=== PATIENT | female | born 1950 | race Caucasian/White ===

== ENCOUNTER 2020-03-22 06:10 | Inpatient (IN) ==
[2020-03-22] MEDS ORDERED: Clindamycin 900 MG/50 ML 900 MG/50 ML IV.SOLN IVPB ONE (06:40)
[2020-03-22] MEDS ORDERED: Ringers Solution, Lactated 1,000 ML IVC SCH ×2 (06:45→15:06)
[2020-03-22] MEDS ORDERED: Acetaminophen IV 1,000 MG/100 ML INFUS..BTL IVPB ONE (07:00)
[2020-03-22] MEDS ORDERED: Ondansetron 4 MG/2 ML VIAL IVP PRN ×2 (07:15→15:06)
[2020-03-22] MEDS ORDERED: Promethazine 6.25 MG in Water for inj. (sterile) 20 ML IVPB PRN (07:15)
[2020-03-22] MEDS ORDERED: *HR* Meperidine 25 MG/ML SYRINGE IVP PRN (07:15)
[2020-03-22] MEDS ORDERED: Ondansetron 4 MG/2 ML VIAL ONE (07:21)
[2020-03-22] MEDS ORDERED: *HR* Succinylcholine 200 MG/10 ML VIAL IVP ONE (07:21)
[2020-03-22] MEDS ORDERED: Lidocaine -MPF 2% 2 ML VIAL ONE (07:21)
[2020-03-22] MEDS ORDERED: Dexamethasone 4 MG/ML VIAL ONE (07:21)
[2020-03-22] MEDS ORDERED: *HR* Rocuronium Bromide 50 MG/5 ML VIAL ONE (07:21)
[2020-03-22] MEDS ORDERED: Lidocaine HCL 4 ML Topical Solution (Laryng-O-Jet Kit Sterile Pak) TP ONE (07:21)
[2020-03-22] MEDS ORDERED: *HR* Propofol 200 MG/20 ML VIAL IVP ONE ×2 (07:22→11:31)
[2020-03-22] MEDS ORDERED: *HR* FentaNYL (PF) 100 MCG/2 ML VIAL ONE (07:22)
[2020-03-22] MEDS ORDERED: Povidone-Iodine 28.4 GM TUBE TP ONE (07:35)
[2020-03-22] MEDS ORDERED: Heparin 1,000 UNITS/500 mL 500 ML ONE (07:40)
[2020-03-22] MEDS ORDERED: Bacitracin 50,000 UNIT, Polymyxin B Sulfate 500,000 UNIT, Sodium Chloride IRRigation 1,... IR ONE (07:45)
[2020-03-22] MEDS ORDERED: *HR* PHENYLEPHRINE 1,000 MCG/10 ML SYRINGE IVP ONE ×4 (08:06→10:08)
[2020-03-22] MEDS ORDERED: *HR* Remifentanil 1 MG VIAL IVP ONE ×2 (08:53→08:54)
[2020-03-22] MEDS ORDERED: EPHEDrine 50 MG/ML VIAL ONE (09:48)
[2020-03-22] MEDS ORDERED: Lidocaine -MPF 4% 5 ML AMPUL ONE (10:39)
[2020-03-22] MEDS ORDERED: *HR* Phenylephrine 10 MG/ML VIAL ONE (10:57)
[2020-03-22] MEDS ORDERED: *HR* HYDROMORPHONE 2 MG/ML VIAL ONE (12:23)
[2020-03-22] MEDS: *HR* HYDROmorphone PF 0.5 MG/0.5 ML SYRINGE IVP PRN ×4 (12:45→13:12)
[2020-03-22] MEDS ORDERED: Naloxone 0.4 MG/ML INJ IVP PRN (15:06)
[2020-03-22] MEDS ORDERED: Acetaminophen 325 MG TABLET PO PRN (15:06)
[2020-03-22] MEDS ORDERED: *HR* Metoprolol 5 MG/5 ML VIAL IVP ONE (16:22)
[2020-03-22] MEDS: Clindamycin 900 MG/50 ML 900 MG/50 ML IV.SOLN IVPB SCH (16:47)
[2020-03-22 16:48] LABS: Troponin I < 0.03 ng/mL (< 0.04)
[2020-03-22] MEDS ORDERED: 0.9 % Sodium Chloride 500 ML IVC ONE (16:56)
[2020-03-22 17:04] LABS: Hematocrit 42.1 % (35.3-44.9); Hemoglobin 13.4 g/dL (11.5-15.4); Mean Corpuscular HGB Conc 31.8 g/dL (31.6-35.5); Mean Corpuscular Hemoglobin 31.8 pg (28.0-33.3); Mean Platelet Volume 10.8 fL (9.4-12.4); Platelet Count 263 K/mcL (140-400); Red Blood Count 4.21 M/mcL (3.82-4.97); Red Cell Distribution Width 12.2 % (11.5-14.5); White Blood Count 11.1 K/mcL (4.3-11.1)
[2020-03-22 17:11] LABS: BUN/Creatinine Ratio 18 (6-26); Blood Urea Nitrogen 14 mg/dL (8-23); Calcium 9.1 mg/dL (8.6-10.3); Carbon Dioxide 23 mEq/L (23-29); Chloride 104 mEq/L (98-107); Glucose 168 mg/dL (70-105); Magnesium 1.7 mg/dL (1.6-2.6); Osmolality,Calculated 286 (280-300); Potassium 4.3 mEq/L (3.5-5.1); Sodium 136 mEq/L (136-145); eGFR For African Americans > 60 (> 60); eGFR For Non-African Americans > 60 (> 60)
[2020-03-22] MEDS: *HR* OxyCODONE Immed Rel 5 MG TABLET PO PRN (21:38)
[2020-03-23] MEDS: Clindamycin 900 MG/50 ML 900 MG/50 ML IV.SOLN IVPB SCH (00:04)
[2020-03-23] MEDS: *HR* OxyCODONE Immed Rel 5 MG TABLET PO PRN ×4 (03:11→18:22)
[2020-03-23] MEDS ORDERED: GI Cocktail 40 ML EACH PO ONE (03:26)
[2020-03-23 06:12] LABS: Thyroid Stimulating Hormone 0.419 mcIU/mL (0.340-5.600)
[2020-03-23 12:22] LABS: INR 1.1; Prothrombin Time 13.1 Seconds (9.4-12.1)
[2020-03-23] MEDS ORDERED: *HR* Warfarin 4 MG TABLET PO ONE (18:00)
[2020-03-23] MEDS ORDERED: Warfarin perPT PO PRN (18:00)
[2020-03-24] MEDS: *HR* HYDROcodone/Acet 5/325 mg TABLET PO PRN (00:28)
[2020-03-24] MEDS: *HR* OxyCODONE Immed Rel 5 MG TABLET PO PRN ×4 (07:50→21:17)
[2020-03-24] MEDS: DilTIAZem CD (24hr) 180 MG CAP.ER.24H PO SCH (07:51)
[2020-03-24] MEDS: amLODIPine 5 MG TABLET PO SCH (07:51)
[2020-03-24] MEDS ORDERED: tiZANidine 4 MG TABLET PO PRN (08:36)
[2020-03-24] MEDS ORDERED: DilTIAZem CD (24hr) 120 MG CAP.ER.24H PO SCH (09:00)
[2020-03-24] MEDS ORDERED: diazePAM 5 MG TABLET PO PRN (17:52)
[2020-03-24 17:55] LABS: INR 1.2; Prothrombin Time 14.2 Seconds (9.4-12.1)
[2020-03-24] MEDS ORDERED: *HR* Warfarin 4 MG TABLET PO ONE (18:00)
[2020-03-25] MEDS: *HR* OxyCODONE Immed Rel 5 MG TABLET PO PRN ×4 (04:52→19:56)
[2020-03-25 05:21] LABS: INR 1.4; Prothrombin Time 15.9 Seconds (9.4-12.1)
[2020-03-25] MEDS: amLODIPine 5 MG TABLET PO SCH (08:59)
[2020-03-25] MEDS: DilTIAZem CD (24hr) 180 MG CAP.ER.24H PO SCH (08:59)
[2020-03-25 15:14] LABS: Basophils % 0.5 %; Eosinophils % 0.2 %; Hematocrit 44.7 % (35.3-44.9); Hemoglobin 14.5 g/dL (11.5-15.4); Immature Granulocytes % 0.5 % (0-4); Lymphocytes # 0.7 K/mcL (0.6-4.6); Mean Corpuscular HGB Conc 32.4 g/dL (31.6-35.5); Mean Corpuscular Hemoglobin 31.1 pg (28.0-33.3); Mean Corpuscular Volume 95.9 fL (83.0-100.0); Mean Platelet Volume 10.7 fL (9.4-12.4); Monocytes # 0.8 K/mcL (0.0-1.3); Monocytes % 8.5 %; Neutrophils # 7.3 K/mcL (1.6-8.9); Platelet Count 274 K/mcL (140-400); Red Blood Count 4.66 M/mcL (3.82-4.97); Red Cell Distribution Width 12.2 % (11.5-14.5); Segmented Neutrophils % 82.3 %; White Blood Count 8.9 K/mcL (4.3-11.1)
[2020-03-25 15:29] LABS: BUN/Creatinine Ratio 17 (6-26); Blood Urea Nitrogen 10 mg/dL (8-23); Calcium 9.3 mg/dL (8.6-10.3); Carbon Dioxide 27 mEq/L (23-29); Chloride 97 mEq/L (98-107); Glucose 120 mg/dL (70-105); Osmolality,Calculated 276 (280-300); Potassium 3.3 mEq/L (3.5-5.1); Sodium 133 mEq/L (136-145); eGFR For African Americans > 60 (> 60); eGFR For Non-African Americans > 60 (> 60)
[2020-03-25] MEDS ORDERED: *HR* Warfarin 2 MG TABLET PO ONE (18:00)
[2020-03-25] MEDS ORDERED: *HR* Metoprolol 5 MG/5 ML VIAL IVP ONE (21:57)
[2020-03-26] MEDS: *HR* OxyCODONE Immed Rel 5 MG TABLET PO PRN ×3 (05:19→17:15)
[2020-03-26 06:33] LABS: Basophils # 0.1 K/mcL (0.0-0.2); Basophils % 0.5 %; Eosinophils % 0.2 %; Hematocrit 44.6 % (35.3-44.9); Hemoglobin 14.8 g/dL (11.5-15.4); Immature Granulocytes % 0.5 % (0-4); Lymphocytes # 0.7 K/mcL (0.6-4.6); Lymphocytes % 6.3 %; Mean Corpuscular HGB Conc 33.2 g/dL (31.6-35.5); Mean Corpuscular Volume 96.3 fL (83.0-100.0); Mean Platelet Volume 10.4 fL (9.4-12.4); Monocytes # 0.9 K/mcL (0.0-1.3); Monocytes % 7.7 %; Neutrophils # 9.6 K/mcL (1.6-8.9); Platelet Count 285 K/mcL (140-400); Red Blood Count 4.63 M/mcL (3.82-4.97); Red Cell Distribution Width 12.2 % (11.5-14.5); Segmented Neutrophils % 84.8 %; White Blood Count 11.3 K/mcL (4.3-11.1)
[2020-03-26 06:44] LABS: INR 1.5; Prothrombin Time 17.6 Seconds (9.4-12.1)
[2020-03-26 06:54] LABS: BUN/Creatinine Ratio 20 (6-26); Blood Urea Nitrogen 11 mg/dL (8-23); Calcium 9.4 mg/dL (8.6-10.3); Carbon Dioxide 24 mEq/L (23-29); Chloride 98 mEq/L (98-107); Glucose 114 mg/dL (70-105); Magnesium 1.8 mg/dL (1.6-2.6); Osmolality,Calculated 274 (280-300); Potassium 3.3 mEq/L (3.5-5.1); Sodium 132 mEq/L (136-145); eGFR For African Americans > 60 (> 60); eGFR For Non-African Americans > 60 (> 60)
[2020-03-26] MEDS ORDERED: DilTIAZem CD (24hr) 240 MG CAP.ER.24H PO SCH (09:00)
[2020-03-26] MEDS: amLODIPine 5 MG TABLET PO SCH (09:51)
[2020-03-26] MEDS: DilTIAZem 50 MG/50 ML IV.SOLN IVC SCH ×2 (10:00→16:04)
[2020-03-26] MEDS ORDERED: *HR* Warfarin 4 MG TABLET PO ONE (18:00)
[2020-03-26] MEDS ORDERED: Isovue-370 500 ML BOTTLE IVP ONE (18:04)
[2020-03-26] MEDS ORDERED: Magnesium Sulfate 1 GM/102 ML PIGGYBACK IVPB ONE (18:06)
[2020-03-26] MEDS ORDERED: *HR* Heparin 5,000 UNIT/ML VIAL IVP PRN ×2 (20:50)
[2020-03-26] MEDS ORDERED: *HR* Heparin 5,000 UNIT/ML VIAL IVP ONE (20:50)
[2020-03-26] MEDS ORDERED: Perflutren Lipid Microsphere 1.3 ML in 0.9 % Sodium Chloride 8.7 ML IVP PRN (21:06)
[2020-03-26 22:18] LABS: Hematocrit 42.1 % (35.3-44.9); Hemoglobin 13.8 g/dL (11.5-15.4); Mean Corpuscular HGB Conc 32.8 g/dL (31.6-35.5); Mean Corpuscular Hemoglobin 31.2 pg (28.0-33.3); Mean Platelet Volume 10.4 fL (9.4-12.4); Platelet Count 301 K/mcL (140-400); Red Blood Count 4.43 M/mcL (3.82-4.97); Red Cell Distribution Width 12.2 % (11.5-14.5); White Blood Count 11.7 K/mcL (4.3-11.1)
[2020-03-26 22:19] LABS: Heparin anti-factor XA UFH < 0.04 IU/mL (0.30-0.70)
[2020-03-26 22:20] LABS: INR 1.6; Prothrombin Time 17.7 Seconds (9.4-12.1)
[2020-03-26] MEDS: Heparin 25,000UNIT/250ML 1/2NS 25,000 UNIT/250 ML IV.SOLN IVC SCH (22:39)
[2020-03-27] MEDS: *HR* OxyCODONE Immed Rel 5 MG TABLET PO PRN ×4 (01:31→21:48)
[2020-03-27] MEDS: DilTIAZem 50 MG/50 ML IV.SOLN IVC SCH (02:27)
[2020-03-27 06:13] LABS: INR 1.8
[2020-03-27] MEDS: *HR* HYDROcodone/Acet 5/325 mg TABLET PO PRN (12:28)
[2020-03-27] MEDS ORDERED: *HR* Warfarin 4 MG TABLET PO ONE (18:00)
[2020-03-27] MEDS: Heparin 25,000UNIT/250ML 1/2NS 25,000 UNIT/250 ML IV.SOLN IVC SCH (22:31)
[2020-03-28 04:32] LABS: INR 1.9
[2020-03-28] MEDS: *HR* OxyCODONE Immed Rel 5 MG TABLET PO PRN ×3 (05:07→18:18)
[2020-03-28] MEDS: *HR* HYDROcodone/Acet 5/325 mg TABLET PO PRN (07:36)
[2020-03-28] MEDS ORDERED: *HR* Warfarin 4 MG TABLET PO ONE (18:00)
[2020-03-28] MEDS: Heparin 25,000UNIT/250ML 1/2NS 25,000 UNIT/250 ML IV.SOLN IVC SCH (23:45)
[2020-03-29 01:29] LABS: INR 2.1
[2020-03-29] MEDS: *HR* OxyCODONE Immed Rel 5 MG TABLET PO PRN ×2 (09:56→20:47)
[2020-03-29] MEDS: DilTIAZem CD (24hr) 180 MG CAP.ER.24H PO SCH (10:45)
[2020-03-29] MEDS ORDERED: *HR* Warfarin 2 MG TABLET PO ONE (18:00)
[2020-03-30 02:16] LABS: INR 1.9; Prothrombin Time 22.1 Seconds (9.4-12.1)
[2020-03-30] MEDS: Heparin 25,000UNIT/250ML 1/2NS 25,000 UNIT/250 ML IV.SOLN IVC SCH (07:30)
[2020-03-30] MEDS: DilTIAZem CD (24hr) 180 MG CAP.ER.24H PO SCH (09:17)
[2020-03-30] MEDS: *HR* OxyCODONE Immed Rel 5 MG TABLET PO PRN (09:23)
[2020-03-30 09:57] LABS: Basophils # 0.1 K/mcL (0.0-0.2); Basophils % 0.9 %; Eosinophils # 0.1 K/mcL (0.0-0.6); Eosinophils % 1.4 %; Hematocrit 44.3 % (35.3-44.9); Hemoglobin 14.4 g/dL (11.5-15.4); Immature Granulocytes % 0.8 % (0-4); Lymphocytes % 12.6 %; Mean Corpuscular HGB Conc 32.5 g/dL (31.6-35.5); Mean Corpuscular Hemoglobin 31.6 pg (28.0-33.3); Mean Corpuscular Volume 97.1 fL (83.0-100.0); Mean Platelet Volume 10.7 fL (9.4-12.4); Monocytes # 0.6 K/mcL (0.0-1.3); Monocytes % 7.9 %; Neutrophils # 5.9 K/mcL (1.6-8.9); Platelet Count 376 K/mcL (140-400); Red Blood Count 4.56 M/mcL (3.82-4.97); Red Cell Distribution Width 11.9 % (11.5-14.5); Segmented Neutrophils % 76.4 %; White Blood Count 7.7 K/mcL (4.3-11.1)
[2020-03-30 10:19] LABS: BUN/Creatinine Ratio 15 (6-26); Blood Urea Nitrogen 10 mg/dL (8-23); Calcium 9.7 mg/dL (8.6-10.3); Carbon Dioxide 24 mEq/L (23-29); Chloride 101 mEq/L (98-107); Glucose 157 mg/dL (70-105); Osmolality,Calculated 282 (280-300); Potassium 3.6 mEq/L (3.5-5.1); Sodium 135 mEq/L (136-145); eGFR For African Americans > 60 (> 60); eGFR For Non-African Americans > 60 (> 60)
[2020-03-30] MEDS ORDERED: *HR* Warfarin 4 MG TABLET PO ONE (18:00)
[2020-03-30] MEDS: *HR* HYDROcodone/Acet 5/325 mg TABLET PO PRN (18:50)
[2020-03-31] MEDS: Heparin 25,000UNIT/250ML 1/2NS 25,000 UNIT/250 ML IV.SOLN IVC SCH (02:06)
[2020-03-31] MEDS: *HR* OxyCODONE Immed Rel 5 MG TABLET PO PRN (02:13)
[2020-03-31 03:11] LABS: Basophils # 0.1 K/mcL (0.0-0.2); Basophils % 1.1 %; Eosinophils # 0.4 K/mcL (0.0-0.6); Eosinophils % 4.6 %; Hematocrit 41.7 % (35.3-44.9); Hemoglobin 13.3 g/dL (11.5-15.4); Immature Granulocytes % 0.9 % (0-4); Lymphocytes % 13.4 %; Mean Corpuscular HGB Conc 31.9 g/dL (31.6-35.5); Mean Corpuscular Hemoglobin 30.9 pg (28.0-33.3); Mean Corpuscular Volume 96.8 fL (83.0-100.0); Mean Platelet Volume 10.2 fL (9.4-12.4); Monocytes # 0.7 K/mcL (0.0-1.3); Monocytes % 9.2 %; Neutrophils # 5.4 K/mcL (1.6-8.9); Platelet Count 367 K/mcL (140-400); Red Blood Count 4.31 M/mcL (3.82-4.97); Red Cell Distribution Width 11.9 % (11.5-14.5); Segmented Neutrophils % 70.8 %; White Blood Count 7.6 K/mcL (4.3-11.1)
[2020-03-31 03:17] LABS: Prothrombin Time 22.5 Seconds (9.4-12.1)
[2020-03-31 03:27] LABS: Alanine Aminotransferase 45 Units/L (7-52); Albumin 3.5 g/dL (3.5-5.7); Albumin/Globulin Ratio 0.9 (1.1-2.2); Alkaline Phosphatase 90 Units/L (34-104); Aspartate Amino Transferase 17 Units/L (13-39); BUN/Creatinine Ratio 19 (6-26); Bilirubin,Total 0.5 mg/dL (0.3-1.0); Blood Urea Nitrogen 12 mg/dL (8-23); Calcium 9.5 mg/dL (8.6-10.3); Carbon Dioxide 24 mEq/L (23-29); Chloride 103 mEq/L (98-107); Globulin 3.7 g/dL (2.4-3.5); Glucose 115 mg/dL (70-105); Osmolality,Calculated 279 (280-300); Potassium 3.7 mEq/L (3.5-5.1); Sodium 134 mEq/L (136-145); Total Protein 7.2 g/dL (6.4-8.9); eGFR For African Americans > 60 (> 60); eGFR For Non-African Americans > 60 (> 60)
[2020-03-31] MEDS: DilTIAZem CD (24hr) 180 MG CAP.ER.24H PO SCH (08:51)
[2020-03-31 10:49] VITALS: BP 121/76
[2020-03-31] MEDS ORDERED: *HR* Warfarin 4 MG TABLET PO ONE (18:00)
== END 2020-03-31 15:20 | disposition home health service (06) | DRG 471 ==
LOC: SAMDAY 06:10 → 3NENU 15:05 → SUATTDRO 15:05
PROVIDERS: ADMIT Orthopaedic Surgery Orthopaedic Surgery of the Spine; ATTEND Orthopaedic Surgery Orthopaedic Surgery of the Spine